=== PATIENT | female | born 1975 | race African-American/Black ===

== ENCOUNTER 2019-11-29 21:35 | Emergency (ER) | payer MEDICAID ==
[~2019-11-29] VITALS: Ht 162.6 cm; Wt 95.0 kg
[2019-11-29] MEDS ORDERED: KETOROLAC 60MG/2ML VIAL IM ONE (22:15)
[2019-11-30 00:26] VITALS: BP 130/81
== END 2019-11-30 01:00 | disposition home or self-care (01) ==
LOC: ER 21:35
DX: R07.89 Other chest pain (principal); Z98.890 Other specified postprocedural states
CPT/HCPCS: 71045; 93005; 96372; 99283; J1885

== ENCOUNTER 2021-07-31 02:54 | Emergency (ER) | payer MEDICAID ==
[~2021-07-31] VITALS: Ht 162.6 cm; Wt 69.0 kg
[2021-07-31 02:56] VITALS: BP 144/92
[2021-07-31] MEDS ORDERED: LIDOCAINE HCL/PF 1% 10 MG/ML 5ML VIAL INFIL ONE (03:15)
[2021-07-31] MEDS ORDERED: BACITRACIN ZINC OINT UDPKT TOP ONE (03:15)
[2021-07-31] MEDS ORDERED: TETANUS, DIPHTHERIA, PERTUSSIS VAC/PF 0.5ML (>10YR OLD) IM ONE (03:15)
[2021-07-31] MEDS ORDERED: LIDOCAINE HCL 1% 10 MG/ML 10ML VIAL IJ NR (03:30)
== END 2021-07-31 04:19 | disposition home or self-care (01) ==
LOC: ER 02:54
DX: S61.217A Laceration without foreign body of left little finger without damage to nail, initial encounter (principal); W25.XXXA Contact with sharp glass, initial encounter; Y93.89 Activity, other specified; Y92.89 Other specified places as the place of occurrence of the external cause; Y99.8 Other external cause status
CPT/HCPCS: 12001; 90471; 90715; 99283; J3490; Z7610

== ENCOUNTER 2021-09-08 19:29 | Emergency (ER) | payer MEDICAID ==
[~2021-09-08] VITALS: Ht 162.6 cm; Wt 87.0 kg
[2021-09-08 19:33] VITALS: BP 116/55
[2021-09-08 20:09] LABS: CLARITY URINE CLEAR (CLEAR); COLOR URINE YELLOW (YELLOW); KETONES URINE NEGATIVE (NEGATIVE); LEUKOCYTE ESTERASE URINE TRACE (NEGATIVE); NITRITE URINE NEGATIVE (NEGATIVE); OCCULT BLOOD URINE 3+ (NEGATIVE); PH URINE 5.5 (4.5-8.0); PROTEIN URINE NEGATIVE (NEGATIVE); SPECIFIC GRAVITY URINE 1.004 (1.005-1.030); UROBILINOGEN URINE 0.2 E.U./dL (0.2-1.0)
[2021-09-08 20:46] LABS: HEMATOCRIT. 29.4 % (36.0-48.0); HEMOGLOBIN. 8.8 g/dL (12.0-16.0); MEAN CORPUSCULAR HEMOGLOBIN 18.6 pg (28.0-32.0); MEAN CORPUSCULAR VOLUME 61.8 fL (81.0-99.0); MEAN PLATELET VOLUME 8.6 fl (7.4-10.4); PLATELET 198 x1000/uL (130-400); RED BLOOD CELL COUNT 4.76 mill/uL (4.2-5.4); RED CELL DISTRIBUTION WIDTH 22.6 % (11.6-14.6)
[2021-09-08 20:51] LABS: CHLORIDE 104 mEq/L (98-107)
[2021-09-08 21:02] LABS: B-HCG QUANTITATIVE < 1 mIU/mL (<3)
[2021-09-08 21:04] LABS: PLATELET ESTIMATE NORMAL
[2021-09-08] MEDS ORDERED: FERR-71 MT (23:19)
== END 2021-09-08 23:56 | disposition home or self-care (01) ==
LOC: ER 19:29
DX: D25.9 Leiomyoma of uterus, unspecified (principal); N93.8 Other specified abnormal uterine and vaginal bleeding; D64.9 Anemia, unspecified; E83.52 Hypercalcemia
CPT/HCPCS: 36415; 76830; 76856; 80053; 81003; 81025; 84702; 85025; 86850; 86900; 99284

== ENCOUNTER 2021-11-24 11:49 | Inpatient (IN) | payer MEDICAID, OTHER ==
[~2021-11-24] VITALS: Ht 162.6 cm; Wt 88.5 kg
[~2021-11-24 11:49] MED LIST: FERR-71 MT
[2021-11-24 12:52] LABS: BASOPHILS % 0.5 % (0.0-2.0); EOSINOPHILS % 2.5 % (0.0-5.0); HEMATOCRIT. 24.9 % (36.0-48.0); HEMOGLOBIN. 7.1 g/dL (12.0-16.0); MEAN CORPUSCULAR HEMOGLOBIN 16.4 pg (28.0-32.0); MEAN CORPUSCULAR VOLUME 57.5 fL (81.0-99.0); MONOCYTES % 9.6 % (2.0-8.0); NEUTROPHILS % 68.4 % (40.0-76.0); PLATELET 245 x1000/uL (130-400); RED BLOOD CELL COUNT 4.32 mill/uL (4.2-5.4); RED CELL DISTRIBUTION WIDTH 22.6 % (11.6-14.6)
[2021-11-24 13:04] LABS: CHLORIDE 107 mEq/L (98-107)
[2021-11-24 13:13] LABS: B-HCG QUANTITATIVE 2 mIU/mL (<3)
[2021-11-24 14:21] LABS: PLATELET ESTIMATE NORMAL
[2021-11-24] MEDS ORDERED: KETOROLAC 15MG/ML VIAL IV ONE (21:00)
[2021-11-25] MEDS ORDERED: ALPRAZOLAM 0.5 MG TABLET PO PRN (01:30)
[2021-11-25] MEDS ORDERED: TRAMADOL 50MG TABLET PO PRN ×2 (01:30→08:45)
[2021-11-25] MEDS ORDERED: ZOLPIDEM TARTRATE 5MG TABLET PO PRN (01:30)
[2021-11-25 01:51] VITALS: BP 107/67
[2021-11-25 02:00] VITALS: BP 107/67
[2021-11-25 04:00] VITALS: BP 105/49
[2021-11-25] MEDS ORDERED: ALPR0.25 MT (04:20)
[2021-11-25] MEDS ORDERED: Pepcid PO (04:20)
[2021-11-25 06:00] VITALS: BP 110/49
[2021-11-25 07:26] LABS: CHLORIDE 111 mEq/L (98-107)
[2021-11-25 08:00] VITALS: BP 126/68
[2021-11-25] MEDS ORDERED: ACETAMINOPHEN 325MG TABLET PO PRN (08:45)
[2021-11-25] MEDS ORDERED: FAMOTIDINE 20MG TABLET PO SCH (09:00)
[2021-11-25 09:11] LABS: EOSINOPHILS % 2.6 % (0.0-5.0); HEMATOCRIT. 28.8 % (36.0-48.0); HEMOGLOBIN. 8.7 g/dL (12.0-16.0); LYMPHOCYTES % 31.1 % (20.0-50.0); MEAN CORPUSCULAR HEMOGLOBIN 18.8 pg (28.0-32.0); MEAN CORPUSCULAR VOLUME 62.3 fL (81.0-99.0); MEAN PLATELET VOLUME 8.7 fl (7.4-10.4); MONOCYTES % 14.3 % (2.0-8.0); NEUTROPHILS % 51.1 % (40.0-76.0); PLATELET 243 x1000/uL (130-400); RED BLOOD CELL COUNT 4.62 mill/uL (4.2-5.4); RED CELL DISTRIBUTION WIDTH 26.7 % (11.6-14.6)
[2021-11-25] MEDS ORDERED: NALOXONE HCL 0.4MG/ML VIAL IV PRN (09:30)
[2021-11-25 10:41] VITALS: BP 126/68
[2021-11-25 12:14] LABS: BASOPHILS % 0.9 % (0.0-2.0)
== END 2021-11-25 12:58 | disposition home or self-care (01) | DRG 663 ==
LOC: ER 11:49 → 6WST 20:29 → ENRESERV 21:30
PROVIDERS: ADMIT Internal Medicine; ATTEND Internal Medicine
PROC: 30233N1 Transfusion of Nonautologous Red Blood Cells into Peripheral Vein, Percutaneous Approach (ICD-10-PCS; principal; 2021-11-24)
DX: D64.9 Anemia, unspecified (principal); D25.9 Leiomyoma of uterus, unspecified; Z79.899 Other long term (current) drug therapy; M54.9 Dorsalgia, unspecified
CPT/HCPCS: 36415; 71045; 80048; 80053; 84484; 84702; 85025; 86850; 86900; 86920; 93005; 99285; P9016

== ENCOUNTER 2021-12-26 11:29 | Emergency (ER) | payer OTHER, MEDICAID ==
[~2021-12-26] VITALS: Ht 172.7 cm; Wt 108.0 kg
[~2021-12-26 11:29] MED LIST changes: +ALPR0.25 MT; -FERR-71 MT; +Pepcid PO
[2021-12-26] MEDS ORDERED: CODE10LI MT ×3 (14:32→14:59)
[2021-12-26] MEDS ORDERED: GUAI-741 MT ×2 (14:32)
[2021-12-26 15:03] VITALS: BP 121/70
== END 2021-12-26 15:03 | disposition home or self-care (01) ==
LOC: ER 13:19
DX: U07.1 COVID-19 (principal)
CPT/HCPCS: 71045; 87426; 87804; 99284; C9803

== ENCOUNTER 2022-08-12 10:31 | Emergency (ER) | payer MEDICAID, OTHER ==
[~2022-08-12] VITALS: Ht 167.6 cm; Wt 89.0 kg
[~2022-08-12 10:31] MED LIST changes: +CODE10LI MT
[2022-08-12] MEDS ORDERED: IBUPROFEN 400MG TABLET PO ONE (10:45)
[2022-08-12 12:53] VITALS: BP 121/53
== END 2022-08-12 12:54 | disposition home or self-care (01) ==
LOC: ER 10:31
DX: B34.9 Viral infection, unspecified (principal); Z20.822 Contact with and (suspected) exposure to COVID-19
CPT/HCPCS: 71045; 81025; 87426; 87804; 99284; C9803

== ENCOUNTER 2022-11-08 21:38 | Emergency (ER) | payer MEDICAID ==
[~2022-11-08] VITALS: Ht 162.6 cm; Wt 84.0 kg
[2022-11-08 22:20] VITALS: BP 106/75
[2022-11-08] MEDS ORDERED: ACETAMINOPHEN 325MG TABLET PO ONE (23:15)
[2022-11-08] MEDS ORDERED: LIDOCAINE HCL/PF 1% 10 MG/ML 5ML VIAL INFIL ONE (23:15)
[2022-11-08] MEDS ORDERED: IBUPROFEN 400MG TABLET PO ONE (23:15)
[2022-11-09] MEDS ORDERED: IBUP-2029 MT (01:24)
[2022-11-09] MEDS ORDERED: AMOX1TAB16 MT (01:24)
[2022-11-09] MEDS ORDERED: ACET-2708 MT (01:24)
[2022-11-09] MEDS ORDERED: AMOXICILLIN/POTASSIUM CLAVULANATE 875/125MG TAB PO ONE (01:45)
== END 2022-11-09 02:05 | disposition home or self-care (01) ==
LOC: ER 21:44
DX: K04.7 Periapical abscess without sinus (principal)
CPT/HCPCS: 10060; 99283; J3490

== ENCOUNTER 2023-03-04 20:31 | Emergency (ER) | payer MEDICAID ==
[~2023-03-04] VITALS: Ht 162.6 cm; Wt 81.0 kg
[~2023-03-04 20:31] MED LIST changes: +ACET-2708 MT; +AMOX1TAB16 MT; +IBUP-2029 MT
[2023-03-04 20:32] VITALS: BP 139/80; RESP 16; TEMP 98.2; O2SAT 100
[2023-03-04 20:34] VITALS: PULSE 69
[2023-03-04 21:11] LABS: CLARITY URINE CLEAR (CLEAR); COLOR URINE YELLOW (YELLOW); KETONES URINE NEGATIVE (NEGATIVE); LEUKOCYTE ESTERASE URINE NEGATIVE (NEGATIVE); NITRITE URINE NEGATIVE (NEGATIVE); OCCULT BLOOD URINE 2+ (NEGATIVE); PH URINE 5.5 (4.5-8.0); PROTEIN URINE NEGATIVE (NEGATIVE); SPECIFIC GRAVITY URINE 1.013 (1.005-1.030); UROBILINOGEN URINE 0.2 E.U./dL (0.2-1.0)
[2023-03-04 22:58] LABS: HEMATOCRIT. 28.5 % (36.0-48.0); HEMOGLOBIN. 8.6 g/dL (12.0-16.0); MEAN CORPUSCULAR HEMOGLOBIN 19.9 pg (28.0-32.0); MEAN CORPUSCULAR VOLUME 66.1 fL (81.0-99.0); MEAN PLATELET VOLUME 8.6 fl (7.4-10.4); PLATELET 228 x1000/uL (130-400); RED BLOOD CELL COUNT 4.31 mill/uL (4.2-5.4)
[2023-03-04 23:04] LABS: CHLORIDE 109 mEq/L (98-107)
[2023-03-04 23:19] LABS: PLATELET ESTIMATE NORMAL
[2023-03-05] MEDS ORDERED: PROT20 MT (01:19)
[2023-03-05] MEDS ORDERED: TRAZ-251 MT (01:19)
[2023-03-05] MEDS ORDERED: VITA250012 MT (01:19)
== END 2023-03-05 02:32 | disposition home or self-care (01) ==
LOC: ER 20:38
DX: K29.70 Gastritis, unspecified, without bleeding (principal); Z79.899 Other long term (current) drug therapy
CPT/HCPCS: 36415; 80053; 81003; 81025; 85025; 99283

== ENCOUNTER 2023-04-23 01:05 | Emergency (ER) | payer MEDICAID ==
[~2023-04-23] VITALS: Ht 165.1 cm; Wt 102.0 kg
[~2023-04-23 01:05] MED LIST changes: +PROT20 MT; +TRAZ-251 MT; +VITA250012 MT
[2023-04-23 01:27] VITALS: BP 103/64; PULSE 88; RESP 18; TEMP 98.6; O2SAT 100
[2023-04-23 01:57] LABS: HEMATOCRIT. 39.7 % (36.0-48.0); HEMOGLOBIN. 12.1 g/dL (12.0-16.0); MEAN CORPUSCULAR HEMOGLOBIN 20.5 pg (28.0-32.0); MEAN CORPUSCULAR HGB CONC 30.5 g/dL (31.0-37.0); MEAN CORPUSCULAR VOLUME 67.3 fL (81.0-99.0); MEAN PLATELET VOLUME 8.8 fl (7.4-10.4); PLATELET 221 x1000/uL (130-400); RED CELL DISTRIBUTION WIDTH 23.4 % (11.6-14.6); WHITE BLOOD COUNT 12.4 x1000/uL (4.5-11.0)
[2023-04-23 01:58] LABS: DIFFERENTIAL COMMENT 1
[2023-04-23 02:16] LABS: CHLORIDE 110 mEq/L (98-107); INDEX HEMOLYSI 1 (1-3); INDEX ICTERIC 1 (1-4); INDEX LIPEMIC 1 (1-3); POTASSIUM 3.7 mEq/L (3.5-5.1); SODIUM 141 mEq/L (136-145)
[2023-04-23 02:23] LABS: ALANINE AMINOTRANSFERASE 32 IU/L (13-61); ASPARTATE AMINOTRANSFERASE 30 IU/L (15-37); BILIRUBIN TOTAL 0.3 mg/dL (0.1-1.0); CALCIUM 11.7 mg/dL (8.5-10.1); CARBON DIOXIDE 28 mEq/L (21-32); CREATININE 0.6 mg/dL (0.6-1.3); GLUCOSE 91 mg/dL (70-105); UREA NITROGEN BLOOD 12 mg/dL (7-21)
[2023-04-23 02:47] LABS: PLATELET ESTIMATE NORMAL
[2023-04-23 02:49] LABS: HYPOCHROMASIA 1+; MICROCYTOSIS 1+
[2023-04-23] MEDS ORDERED: PANTOPRAZOLE 40MG DR TABLET PO ONE (04:30)
[2023-04-23] MEDS ORDERED: MAGNESIUM/ALUMINUM HYDROXIDE/SIMETHICONE 30ML UDC PO ONE (04:30)
[2023-04-23] MEDS ORDERED: ACETAMINOPHEN 325MG TABLET PO ONE (04:30)
[2023-04-23] MEDS ORDERED: PANTOPRAZOLE SODIUM 40 MG/VIAL IV STA (05:29)
[2023-04-23] MEDS ORDERED: ONDANSETRON HCL 4MG/2ML INJ IV STA (05:29)
[2023-04-23] MEDS ORDERED: MAGNESIUM/ALUMINUM HYDROXIDE/SIMETHICONE 30ML UDC PO STA (05:29)
[2023-04-23] MEDS ORDERED: SODIUM CHLORIDE 0.9% 1,000 ML IV ONE (05:30)
[2023-04-23] MEDS ORDERED: PROT40 MT (07:21)
[2023-04-23] MEDS ORDERED: SUCR1TAB MT (07:21)
[2023-04-23] MEDS ORDERED: KETOROLAC 60MG/2ML VIAL IM ONE (08:00)
== END 2023-04-23 07:51 | disposition home or self-care (01) ==
LOC: ER 01:05
DX: K29.70 Gastritis, unspecified, without bleeding (principal); Z79.899 Other long term (current) drug therapy
CPT/HCPCS: 80053; 83690; 85025; 36415; 99283; J2405; J7030; Z7610

== ENCOUNTER 2024-04-14 20:25 | Emergency (ER) | payer MEDICAID ==
[~2024-04-14] VITALS: Ht 162.6 cm; Wt 86.0 kg
[~2024-04-14 20:25] MED LIST changes: -CODE10LI MT; +CODE10LI2 MT; +PROT40 MT; +SUCR1TAB MT
[2024-04-14 20:36] VITALS: O2SAT 99
[2024-04-14 21:15] LABS: CLARITY URINE CLEAR (CLEAR); COLOR URINE YELLOW (YELLOW); GLUCOSE URINE NEGATIVE (NEGATIVE); KETONES URINE NEGATIVE (NEGATIVE); LEUKOCYTE ESTERASE URINE NEGATIVE (NEGATIVE); NITRITE URINE NEGATIVE (NEGATIVE); OCCULT BLOOD URINE TRACE (NEGATIVE); PH URINE 6.5 (4.5-8.0); PROTEIN URINE NEGATIVE (NEGATIVE); SPECIFIC GRAVITY URINE 1.012 (1.005-1.030)
[2024-04-14 22:33] LABS: BACTERIA URINE NONE SEEN; RBC URINE NONE SEEN /hpf (0-2); SQUAMOUS EPITHELIAL CELL URINE NONE SEEN /lpf (RARE/1+); WBC URINE NONE SEEN /hpf (0-2)
[2024-04-14 23:20] VITALS: BP 155/82; PULSE 63; RESP 18; TEMP 36.50292; O2SAT 97
== END 2024-04-14 23:23 | disposition home or self-care (01) ==
LOC: ER 20:25
DX: B34.9 Viral infection, unspecified (principal); R82.91 Other chromoabnormalities of urine; Z79.899 Other long term (current) drug therapy; Z20.822 Contact with and (suspected) exposure to COVID-19
CPT/HCPCS: 81003; 81025; 87426; 99283

== ENCOUNTER 2024-08-23 04:09 | Emergency (ER) | payer MEDICAID, OTHER ==
[~2024-08-23] VITALS: Ht 162.6 cm; Wt 91.8 kg
[2024-08-23 04:19] VITALS: O2SAT 99
[2024-08-23] MEDS ORDERED: ALBU18HF2 IH (05:19)
[2024-08-23 06:00] VITALS: BP 135/71; PULSE 68; RESP 20; TEMP 37.05852; O2SAT 100
== END 2024-08-23 06:00 | disposition home or self-care (01) ==
LOC: ER 04:09
DX: R05.9 Cough, unspecified (principal); Z79.899 Other long term (current) drug therapy; Z98.890 Other specified postprocedural states
CPT/HCPCS: 71045; 99283

== ENCOUNTER 2024-10-13 09:06 | Emergency (ER) | payer MEDICAID, OTHER ==
[~2024-10-13] VITALS: Ht 162.6 cm; Wt 82.0 kg
[~2024-10-13 09:06] MED LIST changes: +ALBU18HF2 IH
[2024-10-13 09:13] VITALS: BP 141/69; RESP 16; TEMP 36.8; O2SAT 97
[2024-10-13 09:14] VITALS: PULSE 74; O2SAT 98
[2024-10-13] MEDS ORDERED: TRIMO LEFTEYE (10:55)
== END 2024-10-13 11:20 | disposition home or self-care (01) ==
LOC: ER 09:13
DX: H10.89 Other conjunctivitis (principal); J02.9 Acute pharyngitis, unspecified; F10.90 Alcohol use, unspecified, uncomplicated; Z79.899 Other long term (current) drug therapy; Y90.9 Presence of alcohol in blood, level not specified
CPT/HCPCS: 99283